=== PATIENT | female | born 1935 | race Caucasian/White ===

== ENCOUNTER 2020-01-07 14:37 | Emergency (ER) | payer OTHER ==
[~2020-01-07] VITALS: Ht 149.9 cm; Wt 64.4 kg
[~2020-01-07 14:37] MED LIST: ATORVASTATIN CA40 MG; FENOFIBRATE200 MG; OMEPRAZOLE40 MG; RANITIDINE HCL300 MG; ZESTRIL20 MG
[2020-01-07] MEDS ORDERED: CILOSTAZOL100 MG PO (15:01)
[2020-01-07] MEDS ORDERED: ZOCOR20 MG PO (15:02)
[2020-01-07] MEDS ORDERED: AVALIDE 300-121 EACH PO (15:02)
[2020-01-07] MEDS ORDERED: EUTHYROX75 MCG PO (15:03)
== END 2020-01-07 20:48 | disposition home or self-care (01) ==
LOC: ER 14:37
DX: K58.8 Other irritable bowel syndrome (principal)

== ENCOUNTER 2021-12-28 13:06 | Outpatient (CLI) | payer OTHER ==
[~2021-12-28 13:06] MED LIST changes: +AVALIDE 300-121 EACH PO; +CILOSTAZOL100 MG PO; +EUTHYROX75 MCG PO; +ZOCOR20 MG PO
== END 2021-12-28 13:14 | disposition home or self-care (01) ==
LOC: NUCLEAR 13:06
PROVIDERS: ATTEND General Practice
DX: M81.0 Age-related osteoporosis without current pathological fracture (principal)

== ENCOUNTER 2021-12-28 13:57 | Outpatient (CLI) | payer OTHER | END 2021-12-28 14:02 | disposition home or self-care (01) | LOC: RAD 13:57 | PROVIDERS: ATTEND General Practice | DX: R05.9 Cough, unspecified (principal) ==

== ENCOUNTER 2021-12-30 14:56 | Outpatient (CLI) | payer OTHER | END 2021-12-30 15:01 | disposition home or self-care (01) | LOC: RAD 14:56 | PROVIDERS: ATTEND Internal Medicine Cardiovascular Disease | DX: M54.50 Low back pain, unspecified (principal) ==

== ENCOUNTER 2022-07-15 10:55 | Emergency (ER) | payer OTHER ==
[~2022-07-15] VITALS: Ht 149.9 cm; Wt 74.8 kg
[2022-07-15] MEDS ORDERED: LIPOFEN150 MG (11:05)
[2022-07-15] MEDS ORDERED: ATORVASTATIN CA40 MG (11:06)
[2022-07-15] MEDS ORDERED: PENTOXIFYLLINE (11:07)
== END 2022-07-15 16:23 | disposition home or self-care (01) ==
LOC: ER 10:55
DX: K29.70 Gastritis, unspecified, without bleeding (principal); I10 Essential (primary) hypertension; E05.90 Thyrotoxicosis, unspecified without thyrotoxic crisis or storm; R10.9 Unspecified abdominal pain; Z20.822 Contact with and (suspected) exposure to COVID-19

== ENCOUNTER 2022-08-03 11:07 | Emergency (ER) | payer OTHER ==
[~2022-08-03] VITALS: Ht 160 cm; Wt 72.6 kg
[~2022-08-03 11:07] MED LIST changes: +LIPOFEN150 MG; +PENTOXIFYLLINE
[2022-08-03] MEDS ORDERED: INTESTINEX680 M1 PO (16:30)
[2022-08-03] MEDS ORDERED: PEPCID AC20 MG PO (16:30)
== END 2022-08-03 16:58 | disposition home or self-care (01) ==
LOC: ER 11:07
DX: A08.4 Viral intestinal infection, unspecified (principal); I10 Essential (primary) hypertension; E03.8 Other specified hypothyroidism; Z88.6 Allergy status to analgesic agent; Z20.822 Contact with and (suspected) exposure to COVID-19

== ENCOUNTER 2023-03-15 10:59 | Emergency (ER) | payer OTHER ==
[~2023-03-15] VITALS: Ht 149.9 cm; Wt 64.4 kg
[~2023-03-15 10:59] MED LIST changes: +INTESTINEX680 M1 PO; +PEPCID AC20 MG PO
[2023-03-15] MEDS ORDERED: CILOSTAZOL100 MG PO (11:10)
[2023-03-15] MEDS ORDERED: LEVOFLOXACIN750 MG PO (12:59)
[2023-03-15] MEDS ORDERED: MEDROLPACK PO (12:59)
[2023-03-15] MEDS ORDERED: IPRATROPIU0.2 MG/1 M IH (12:59)
== END 2023-03-15 13:03 | disposition home or self-care (01) ==
LOC: ER 10:59
DX: J06.9 Acute upper respiratory infection, unspecified (principal); R53.81 Other malaise; R05.9 Cough, unspecified; Z20.822 Contact with and (suspected) exposure to COVID-19; I10 Essential (primary) hypertension; E03.8 Other specified hypothyroidism; Z88.6 Allergy status to analgesic agent